=== PATIENT | female | born 1975 | race Caucasian/White ===

== ENCOUNTER 2022-03-15 05:59 | Day surgery (SDC) | payer OTHER ==
[2022-03-15] MEDS ORDERED: Dextrose 5%-Lactated Ringers 1,000 ML IV SCH (06:30)
[2022-03-15] MEDS ORDERED: Propofol 200 MG/20 ML SDV ONE (07:08)
[2022-03-15] MEDS ORDERED: Midazolam 1 MG/ML 2 ML SDV ONE (07:09)
[2022-03-15] MEDS ORDERED: fentaNYL 50 MCG/ML SDV ONE (07:09)
[2022-03-15 08:48] VITALS: BP 131/80; PULSE 89
== END 2022-03-15 09:36 | disposition home or self-care (01) ==
LOC: JP.SDS 05:59
PROVIDERS: ATTEND Surgery
DX: Z12.11 Encounter for screening for malignant neoplasm of colon (principal); K63.5 Polyp of colon; K64.8 Other hemorrhoids; K21.9 Gastro-esophageal reflux disease without esophagitis; F17.200 Nicotine dependence, unspecified, uncomplicated; K57.30 Diverticulosis of large intestine without perforation or abscess without bleeding; Z85.3 Personal history of malignant neoplasm of breast; Z79.899 Other long term (current) drug therapy; Z88.0 Allergy status to penicillin
CPT/HCPCS: 88305; J2250; J2704; J3010; J7121

== ENCOUNTER 2022-03-15 14:36 | Emergency (ER) | payer OTHER ==
[2022-03-15 14:57] VITALS: BP 146/86; PULSE 96
== END 2022-03-15 16:35 | disposition home or self-care (01) ==
LOC: JP.ED 14:36
DX: T17.908A Unspecified foreign body in respiratory tract, part unspecified causing other injury, initial encounter (principal); K21.9 Gastro-esophageal reflux disease without esophagitis; E66.9 Obesity, unspecified; Z68.41 Body mass index [BMI] 40.0-44.9, adult; Z88.0 Allergy status to penicillin; Z79.899 Other long term (current) drug therapy; Z87.891 Personal history of nicotine dependence
CPT/HCPCS: 71046; 99283; 99284

== ENCOUNTER 2023-05-05 13:06 | Emergency (ER) | payer OTHER | END 2023-05-05 13:15 | disposition left against medical advice (07) | LOC: JP.ED 13:06 | DX: Z53.21 Procedure and treatment not carried out due to patient leaving prior to being seen by health care provider (principal) ==